=== PATIENT | male | born 1965 | race Caucasian/White ===

== ENCOUNTER 2023-05-31 13:01 | Inpatient (IN) | payer OTHER ==
[2023-05-31 14:12] VITALS: BMI 28.3
[2023-05-31] MEDS ORDERED: ACETAMINOPHEN 325 MG TABLET (FP) PO PRN (19:00)
[2023-05-31] MEDS ORDERED: BENZONATATE 200 MG CAPSULE PO PRN (19:00)
[2023-05-31] MEDS ORDERED: POLYETHYLENE GLYCOL (HEALTHYLAX) 3350 17 GM PACKET PO PRN (19:00)
[2023-05-31] MEDS ORDERED: LOPERAMIDE HCL 2 MG CAPSULE PO PRN (19:00)
[2023-05-31] MEDS ORDERED: IBUPROFEN 400 MG TABLET (FP) PO PRN (19:00)
[2023-05-31] MEDS ORDERED: MAG HYDROX/AL HYDROX/SIMETH 30 ML UNIT-DOSE CUP PO PRN (19:00)
[2023-05-31] MEDS ORDERED: BENZOCAINE/MENTHOL (CHLORASEPTIC ) LOZENGE MM PRN (19:00)
[2023-05-31] MEDS ORDERED: NALOXONE HCL 0.4 MG/ML VIAL IM PRN (19:00)
[2023-05-31] MEDS ORDERED: BISMUTH SUBSALICYLATE 524 MG/30 ML PO PRN (19:00)
[2023-05-31] MEDS ORDERED: DICYCLOMINE HCL 10 MG CAPSULE PO PRN (19:00)
[2023-05-31] MEDS ORDERED: diazePAM 5 MG TABLET PO PRN (19:00)
[2023-05-31] MEDS ORDERED: NALOXONE HCL (KLOXXADO) 8 MG SPRAY NS PRN (19:00)
[2023-05-31] MEDS ORDERED: ONDANSETRON *ODT* 4 MG TABLET SL PRN (19:00)
[2023-05-31] MEDS ORDERED: IBUPROFEN 600 MG TABLET (FP) PO PRN (19:00)
[2023-05-31] MEDS ORDERED: guaiFENesin 600 MG TABLET.ER (FP) PO PRN (19:00)
[2023-05-31] MEDS ORDERED: MAGNESIUM HYDROX 2400MG/30ML ORAL SUSPENSION 30 ML CUP PO PRN (19:00)
[2023-05-31] MEDS: hydrOXYzine PAMOATE 25 MG CAPSULE (FP) PO PRN (19:50)
[2023-05-31] MEDS: diazePAM 5 MG TABLET PO SCH (22:11)
[2023-05-31] MEDS: THIAMINE HCL 100 MG TABLET (FP) PO SCH (22:11)
[2023-05-31] MEDS: MELATONIN 5 MG TABLETS PO SCH (22:12)
[2023-06-01] MEDS: diazePAM 5 MG TABLET PO SCH ×2 (05:17→10:20)
[2023-06-01] MEDS: METHOCARBAMOL 500 MG TABLET PO PRN ×2 (10:20→19:28)
[2023-06-01] MEDS: hydrOXYzine PAMOATE 25 MG CAPSULE (FP) PO PRN (10:20)
[2023-06-01] MEDS: PRENATAL VITAMINS W/ FOLIC ACID TABLET (FP) PO SCH (10:20)
[2023-06-01 10:57] LABS: HEMATOCRIT 36.5 % (35.4-49); HEMOGLOBIN 12.4 GM/dL (11.7-16.9); MCH 31.7 pg (25.7-33.7); MCHC 34.1 g/dl (32.0-35.9); MEAN PLT VOLUME 8.9 fl (7.5-11.1); PLATELET COUNT 53 10^3/uL (134-434); RBC 3.92 M/mm3 (4.00-5.60); RDW 20.1 % (11.9-15.9); WHITE BLOOD COUNT 3.8 K/mm3 (4.0-10.0)
[2023-06-01 11:05] LABS: CALCIUM 8.3 mg/dL (8.5-10.1)
[2023-06-01 11:06] LABS: ALBUMIN 2.9 g/dl (3.4-5.0); BLOOD UREA NITROGEN 10.4 mg/dL (7-18)
[2023-06-01 11:09] LABS: CREATININE 0.6 mg/dL (0.55-1.3)
[2023-06-01 11:11] LABS: BILIRUBIN,TOTAL 6.4 mg/dL (0.2-1); TOT PROT 6.3 g/dl (6.4-8.2)
[2023-06-01] MEDS ORDERED: LORazepam 1 MG TABLET PO PRN (14:48)
[2023-06-01] MEDS ORDERED: POTASSIUM CHLORIDE ORAL LIQUID 20 MEQ/15 ML PO ONE ×2 (15:30→19:30)
[2023-06-01] MEDS: LORazepam 2 MG TABLET PO SCH ×2 (17:09→22:04)
[2023-06-01] MEDS: SULFAMETHOXAZOLE/TRIMETHOPRIM 800MG/160MG D.S. TABLET PO SCH (22:03)
[2023-06-01] MEDS: MELATONIN 5 MG TABLETS PO SCH (22:04)
[2023-06-01] MEDS: THIAMINE HCL 100 MG TABLET (FP) PO SCH (22:04)
[2023-06-02] MEDS: LORazepam 1 MG TABLET PO SCH ×4 (05:07→22:11)
[2023-06-02] MEDS ORDERED: diazePAM 5 MG TABLET PO SCH (06:00)
[2023-06-02] MEDS: METHOCARBAMOL 500 MG TABLET PO PRN (10:18)
[2023-06-02] MEDS: SULFAMETHOXAZOLE/TRIMETHOPRIM 800MG/160MG D.S. TABLET PO SCH ×2 (10:18→22:10)
[2023-06-02] MEDS: hydrOXYzine PAMOATE 25 MG CAPSULE (FP) PO PRN (10:18)
[2023-06-02] MEDS: PRENATAL VITAMINS W/ FOLIC ACID TABLET (FP) PO SCH (10:18)
[2023-06-02] MEDS: BACITRACIN 0.9 GM PACKET TP SCH (10:20)
[2023-06-02 10:54] LABS: POTASSIUM 3.7 mmol/L (3.5-5.1)
[2023-06-02 11:11] LABS: ALBUMIN 2.9 g/dl (3.4-5.0); BLOOD UREA NITROGEN 10.5 mg/dL (7-18)
[2023-06-02 11:14] LABS: CREATININE 0.7 mg/dL (0.55-1.3); TOT PROT 6.2 g/dl (6.4-8.2)
[2023-06-02 11:16] LABS: BILIRUBIN,TOTAL 7.2 mg/dL (0.2-1)
[2023-06-02] MEDS: THIAMINE HCL 100 MG TABLET (FP) PO SCH (22:10)
[2023-06-02] MEDS: MELATONIN 5 MG TABLETS PO SCH (22:11)
[2023-06-03] MEDS ORDERED: LORazepam 0.5 MG TABLET PO PRN
[2023-06-03] MEDS: LORazepam 0.5 MG TABLET PO SCH ×4 (05:23→22:20)
[2023-06-03] MEDS ORDERED: diazePAM 5 MG TABLET PO SCH (06:00)
[2023-06-03] MEDS ORDERED: ACETAMINOPHEN 325 MG TABLET (FP) PO ONE (06:35)
[2023-06-03] MEDS: METHOCARBAMOL 500 MG TABLET PO PRN (10:15)
[2023-06-03] MEDS: SULFAMETHOXAZOLE/TRIMETHOPRIM 800MG/160MG D.S. TABLET PO SCH ×2 (10:15→22:17)
[2023-06-03] MEDS: hydrOXYzine PAMOATE 25 MG CAPSULE (FP) PO PRN (10:15)
[2023-06-03] MEDS: PRENATAL VITAMINS W/ FOLIC ACID TABLET (FP) PO SCH (10:15)
[2023-06-03] MEDS: BACITRACIN 0.9 GM PACKET TP SCH (10:16)
[2023-06-03] MEDS: SILVER SULFADIAZINE 1% TOP CREAM 50 GM JAR TP SCH ×2 (11:08→22:19)
[2023-06-03] MEDS: THIAMINE HCL 100 MG TABLET (FP) PO SCH (22:17)
[2023-06-03] MEDS: MELATONIN 5 MG TABLETS PO SCH (22:18)
[2023-06-04] MEDS ORDERED: LORazepam 0.5 MG TABLET PO ONE (05:00)
[2023-06-04] MEDS ORDERED: diazePAM 5 MG TABLET PO ONE (06:00)
[2023-06-04 08:53] VITALS: BP 130/81; PULSE 97; RESP 17; TEMP 97.8
[2023-06-04] MEDS: PRENATAL VITAMINS W/ FOLIC ACID TABLET (FP) PO SCH (09:14)
[2023-06-04] MEDS: SULFAMETHOXAZOLE/TRIMETHOPRIM 800MG/160MG D.S. TABLET PO SCH (09:14)
[2023-06-04] MEDS: BACITRACIN 0.9 GM PACKET TP SCH (09:15)
[2023-06-04] MEDS: SILVER SULFADIAZINE 1% TOP CREAM 50 GM JAR TP SCH (09:15)
== END 2023-06-04 11:35 | disposition home or self-care (01) | DRG 775 ==
LOC: YASAS 13:01 → Y6N 18:34
PROVIDERS: ADMIT Allergy & Immunology; ATTEND Surgery
PROC: HZ2ZZZZ Detoxification Services for Substance Abuse Treatment (ICD-10-PCS; principal; 2023-05-31)
DX: F10.230 Alcohol dependence with withdrawal, uncomplicated (principal); L03.116 Cellulitis of left lower limb; L03.115 Cellulitis of right lower limb; Z86.11 Personal history of tuberculosis
CPT/HCPCS: 36415; 71046-TC-FY; 80053; 84450; 85027; 86780; 87635